=== PATIENT | male | born 1965 | race Two or more races ===

== ENCOUNTER → 2016-05-28 | Outpatient (CLI) | payer MEDICAID ==
[2016-05-28 11:17] LABS: BASOPHIL# 0.1 X10e3 (0-0.3); BASOPHIL% 0.6 % (0-2.5); EOSINOPHIL# 0.1 X10e3 (0-0.7); EOSINOPHIL% 0.8 % (0.0-7.0); HEMATOCRIT 49.9 % (38.0-50.0); HEMOGLOBIN 16.4 gm/dL (13.0-16.0); LYMPHOCYTE# 1.5 X10e3 (1.0-3.5); LYMPHOCYTE% 15.7 % (17.0-45.0); MEAN CELL VOLUME 92.4 FL (83-96); MEAN CORPUSCULAR HEMOGLOBIN 30.4 PG (28-34); MEAN CORPUSCULAR HGB CONC 32.9 g/dL (30-36); MEAN PLATELET VOLUME 8.3 FL (6.5-11.5); MONOCYTE# 0.5 X10e3 (0-1.0); MONOCYTE% 5.6 % (3.0-12.0); NEUTROPHIL# 7.5 X10e3 (1.5-7.1); NEUTROPHIL% 77.3 % (40-75); PLATELET COUNT 251 X10e3 (140-420); RED BLOOD COUNT 5.41 X10e (3.90-5.60); RED CELL DISTRIBUTION WIDTH 13.8 % (11.0-15.5); WHITE BLOOD COUNT 9.8 X10e3 (4.0-10.5)
[2016-05-28 11:18] LABS: DIFF IND NO
[2016-05-28 12:16] LABS: ALBUMIN SERUM 3.7 g/dL (3.5-5.0); BILIRUBIN,TOTAL 0.7 mg/dL (0.2-2.0); BUN/CREATININE RATIO 13.33; CALCIUM SERUM 9.3 mg/dL (8.4-10.2); CREATININE SERUM 0.9 mg/dL (0.6-1.4); GLOM FILT RATE Estimated 99.2 mL/min (>60); MAGNESIUM 2.1 mg/dL (1.6-3.0); POTASSIUM 4.9 mmol/L (3.5-5.1); PROTEIN TOTAL SERUM 7.1 g/dL (6.0-8.3)
== END | disposition home or self-care (01) ==
LOC: CLAB 10:17
DX: I50.22 Chronic systolic (congestive) heart failure (principal); I48.91 Unspecified atrial fibrillation
CPT/HCPCS: 36415; 80053; 80061; 83735; 85025

== ENCOUNTER → 2016-10-29 | Outpatient (CLI) | payer MEDICAID ==
[2016-10-29 10:56] LABS: BUN/CREATININE RATIO 18.88; CALCIUM SERUM 9.1 mg/dL (8.4-10.2); CREATININE SERUM 0.9 mg/dL (0.6-1.4); GLOM FILT RATE Estimated 99.2 mL/min (>60); MAGNESIUM 2.2 mg/dL (1.6-3.0); POTASSIUM 4.8 mmol/L (3.5-5.1)
== END | disposition home or self-care (01) ==
LOC: CLAB 09:31
DX: I50.22 Chronic systolic (congestive) heart failure (principal)
CPT/HCPCS: 36415; 80048; 83735